=== PATIENT | female | born 1955 | race Caucasian/White ===

== ENCOUNTER → 2016-10-06 | Outpatient (CLI) | payer OTHER ==
[~2016-10-06] MED LIST: CHOL100010 PO; EPP3/2 IM; GABA-113 PO; HYDR-5688 PO; MELO7.5T5 PO; MULT-663; OMEG10007 PO; OXYC-57 PO
--- NOTE | 2016-10-06 11:26 | DIAGNOSTIC IMAGING REPORT ---
CHEST 2 VIEWS ROUTINE CLINICAL HISTORY: Cough. COMPARISON STUDY: Chest CT November 26, 2013. FINDINGS: Lung volumes are normal. There is no pneumothorax or pleural effusion. Pulmonary vascularity is normal. Minimal bibasilar opacities are unchanged and favor atelectasis. Cardiomediastinal silhouette is stable. IMPRESSION: 1. No acute cardiopulmonary findings. 2. Minimal bibasilar opacities suggestive of atelectasis. Electronically signed by: Celso Cardona M.D. 10/06/2016 11:24 AM Dictated Date/Time: 10/06/2016 11:23 AM
== END | disposition home or self-care (01) ==
LOC: C.RAD1850 10:54
PROVIDERS: ATTEND Internal Medicine
DX: R05 Cough (principal)

== ENCOUNTER → 2016-10-06 | Outpatient (CLI) | payer OTHER ==
[2016-10-06 12:29] LABS: BASO % 0.3 %; BASO ABS # 0.02 K/uL (0-0.2); COMPLETE YES; EOS % 0.6 %; HEMATOCRIT 45.5 % (37-47); IG% 0.4 %; LYMPH % 16.2 %; LYMPH ABS # 1.29 K/uL (1.2-3.4); MEAN CORPUSCULAR HEMOGLOBIN 32.9 pg (25-34); MEAN CORPUSCULAR HGB CONC 34.9 g/dl (32-36); MEAN PLATELET VOLUME 8.8 fL (7.4-10.4); MONO % 6.5 %; PLATELET COUNT 229 K/uL (130-400); RED BLOOD COUNT 4.84 M/uL (4.2-5.4); WHITE BLOOD COUNT 7.97 K/uL (4.8-10.8)
[2016-10-06 13:23] LABS: ESTIMATED AVERAGE GLUCOSE 100 mg/dl; HA1C FLAG Normal (Normal)
[2016-10-06 17:03] LABS: ALT/SGPT 66 U/L (12-78); AST/SGOT 42 U/L (15-37); BLOOD UREA NITROGEN 16 mg/dl (7-18); BUN/CREATININE RATIO 18.3 (10-20); CALCIUM 9.2 mg/dl (8.5-10.1); CARBON DIOXIDE 24 mmol/L (21-32); CHLORIDE 102 mmol/L (98-107); CREATININE 0.89 mg/dl (0.60-1.20); GLUCOSE 86 mg/dl (70-99); POTASSIUM 4.5 mmol/L (3.5-5.1); SODIUM 138 mmol/L (136-145)
[2016-10-06 17:15] LABS: ALB/GLOB RATIO 0.9 (0.9-2); ALKALINE PHOSPHATASE 142 U/L (45-117); CHOLESTEROL 233 mg/dl (0-200); CHOLESTEROL/HDL RATIO 2.6; HDL CHOLESTEROL 89 mg/dl; LDL CHOLESTEROL CALCULATED 124 mg/dl; THYROID STIMULATING HORMONE 0.602 uIu/ml (0.300-4.500); TRIGLYCERIDES 98 mg/dl (0-150); VERY LOW DENSITY LIPOPROT CALC 20 mg/dl
== END | disposition home or self-care (01) ==
LOC: C.LABBFT 10:08
PROVIDERS: ATTEND Internal Medicine
DX: N93.9 Abnormal uterine and vaginal bleeding, unspecified (principal); E55.9 Vitamin D deficiency, unspecified; Z13.6 Encounter for screening for cardiovascular disorders; R73.01 Impaired fasting glucose

== ENCOUNTER → 2016-10-19 | Outpatient (CLI) | payer OTHER | END | disposition home or self-care (01) | LOC: C.PAPS 11:34 | PROVIDERS: ATTEND Obstetrics & Gynecology | DX: Z12.4 Encounter for screening for malignant neoplasm of cervix (principal) ==

== ENCOUNTER → 2017-02-08 | Outpatient (CLI) | payer OTHER | END | disposition home or self-care (01) | LOC: C.LAB1850 12:39 | PROVIDERS: ATTEND Internal Medicine | DX: E55.9 Vitamin D deficiency, unspecified (principal); R94.5 Abnormal results of liver function studies ==

== ENCOUNTER → 2017-04-07 | Outpatient (CLI) | payer OTHER ==
[~2017-04-07] MED LIST changes: -GABA-113 PO; -HYDR-5688 PO; -MELO7.5T5 PO; -MULT-663; -OMEG10007 PO; +OPTIRAY 320 IV PRN; -OXYC-57 PO
--- NOTE | 2017-04-07 08:05 | DIAGNOSTIC IMAGING REPORT ---
CT NECK ANGIO WITH CONTRAST CLINICAL HISTORY: Carotid artery stenosis COMPARISON STUDY: No previous studies for comparison. TECHNIQUE: CT angiography was performed from the aortic arch to the skull base. MIP imaging was performed. The patient was scanned in a dynamic helical fashion during intravenous administration of 118 cc of Optiray 320. CT DOSE: 524.01 mGy.cm Technique: CT angiogram of the carotid and vertebral arteries was obtained using intravenous contrast and 3-D reconstruction. NASCET criteria was utilized. Findings: Images the lung apices reveal septal thickening and scattered groundglass attenuation. There is a multinodular thyroid gland. The right carotid revealed no evidence of aneurysm and no evidence of dissection. There is no evidence of hemodynamic significant stenosis. The left carotid revealed no evidence of hemodynamic significant stenosis. There is no evidence of aneurysm. There is no evidence of dissection. There is no evidence of hemodynamically significant vertebral stenosis. There is no evidence of vertebral dissection. IMPRESSION: No evidence of hemodynamically significant carotid or vertebral artery stenosis. No evidence of dissection. Electronically signed by: Bharat Cardoso M.D. 04/07/2017 8:03 AM Dictated Date/Time: 04/07/2017 8:00 AM
== END | disposition home or self-care (01) ==
LOC: C.CTS 07:16
PROVIDERS: ATTEND Physician Assistant Medical
DX: I65.29 Occlusion and stenosis of unspecified carotid artery (principal)

== ENCOUNTER → 2017-04-20 | Outpatient (CLI) | payer OTHER ==
[~2017-04-20] MED LIST changes: -OPTIRAY 320 IV PRN
--- NOTE | 2017-04-20 09:09 | DIAGNOSTIC IMAGING REPORT ---
SOFT TISS HEAD/NECK-THYROID CLINICAL HISTORY: 62 years-old Female presenting with nontoxic multinodular goiter. TECHNIQUE: Real-time grayscale and color and spectral Doppler ultrasound imaging of the thyroid and base of the neck was performed. COMPARISON: CT from 04/07/2017. FINDINGS: Right lobe: Normal echogenicity although heterogeneous echotexture. The right lobe of the thyroid measures 4.3 x 1.2 x 2.0 cm. 2 discrete nodules noted: 1) isoechoic somewhat ill-defined nodule posteriorly at the upper pole measuring 0.9 x 1.0 x 0.9 cm. 2) additional isoechoic somewhat ill-defined nodule posteriorly towards the lower pole is ring 1.2 x 1.0 x 1.1 cm. Hyperechogenic focus may represent a coarse calcification. No parenchymal hyperemia. Left lobe: Normal echogenicity although heterogeneous echotexture. The left lobe of the thyroid measures 3.9 x 1.1 x 1.5 cm. No nodules. No parenchymal hyperemia. Isthmus: The isthmus measures 3 mm in thickness. No nodules. IMPRESSION: Two isoechoic nodules in the right lobe of the thyroid have a low suspicion pattern and are less than 1.5 cm. No fine-needle aspiration indicated at this time. Electronically signed by: Bryson Gonsalves M.D. 04/20/2017 9:07 AM Dictated Date/Time: 04/20/2017 9:02 AM
[2017-04-20 10:54] LABS: THYROID STIMULATING HORMONE 1.07 uIu/ml (0.300-4.500)
== END | disposition home or self-care (01) ==
LOC: C.ULTR 08:28
PROVIDERS: ATTEND Physician Assistant Medical
DX: E04.2 Nontoxic multinodular goiter (principal)

== ENCOUNTER → 2017-10-06 | Outpatient (CLI) | payer OTHER ==
--- NOTE | 2017-10-06 12:58 | DIAGNOSTIC IMAGING REPORT ---
ULTRASOUND OF THE THYROID GLAND CLINICAL HISTORY: Thyroid nodule. COMPARISON STUDY: Thyroid ultrasound dated 04/20/2017. TECHNIQUE: Real-time, grayscale, and color flow sonography of the thyroid gland is performed utilizing a high-frequency linear transducer. Images are reviewed in the transverse and longitudinal planes. FINDINGS: Right lobe: The right lobe of the thyroid gland is normal in size and heterogeneous in echotexture, measuring 4.3 x 1.6 x 1.7 cm. A hypoechoic nodule in the upper pole measures 1.2 x 0.8 x 1.0 cm (previously measured 1.0 x 0.9 x 1.1 cm). A hypoechoic nodule in the lower pole measures 1.2 x 0.9 x 0.9 cm (previously measured 1.2 x 1.0 x 0.9 cm). A coarse calcification is incidentally noted in the right lobe. A 1.0 cm hyperechoic focus is seen inferior to the right lower pole. This is of doubtful significance. Left lobe: The left lobe of the thyroid gland is normal in size and heterogeneous in echotexture, measuring 4.2 x 1.7 x 1.1 cm. A slightly hyperechoic nodule in the lower pole measures 0.6 x 0.5 x 0.6 cm (not clearly identified previously). Isthmus: The thyroid isthmus is normal in appearance and measures 0.2 cm in AP diameter. IMPRESSION: 1. The thyroid gland is heterogeneous in echotexture. 2. Scattered low suspicion thyroid nodules as above. These do not meet sonographic criteria for fine-needle aspiration. Electronically signed by: Keith Bhat M.D. 10/06/2017 12:56 PM Dictated Date/Time: 10/06/2017 12:53 PM
== END | disposition home or self-care (01) ==
LOC: C.ULTRBC 12:22
PROVIDERS: ATTEND Physician Assistant Medical
DX: R93.8 Abnormal findings on diagnostic imaging of other specified body structures (principal)

== ENCOUNTER → 2018-05-14 | Outpatient (CLI) | payer OTHER ==
--- NOTE | 2018-05-14 11:02 | DIAGNOSTIC IMAGING REPORT ---
SOFT TISS HEAD/NECK-THYROID CLINICAL HISTORY: 63 years-old Female with E04.2 Multinodular [id number]. COMPARISON: Thyroid ultrasound 10/06/2017 TECHNIQUE: Multiple real time sonographic images of the thyroid were obtained accessing swanson scale appearance and color doppler flow. FINDINGS: MEASUREMENTS: Right lobe: 4.2 x 2.1 x 1.6 cm Left lobe: 3.8 x 1.7 x 1.6 cm Isthmus: 0.4 cm PARENCHYMA: The thyroid parenchymal echotexture is mildly heterogeneous. NODULES: 0.3 cm shadowing calcification of the mid pole right thyroid. There is a hypoechoic solid nodule of the upper right thyroid lobe which is mostly isoechoic measuring 1.1 x 1.1 x 1.2 cm, previously measuring 1.2 x 0.8 x 1.0 cm. Additionally, there is an iso to slightly hypoechoic lesion of the lower pole right thyroid, 1.3 x 1.3 x 1.2 cm, previously measuring 1.2 x 0.9 x 0.9 cm. No new thyroid nodules are identified. There is a 9 mm echogenic nodule of the lower pole left thyroid measuring up to 0.9 cm, previously measuring up to 0.6 cm. This is likely unchanged with difference in size likely related to technique. IMPRESSION: Heterogeneous thyroid parenchyma with scattered low suspicion thyroid nodules as above. No thyroid nodules meet criteria for biopsy at this time. The above report was generated using voice recognition software. It may contain grammatical, syntax or spelling errors. Electronically signed by: George Butterfield M.D. 05/14/2018 11:01 AM Dictated Date/Time: 05/14/2018 10:55 AM
== END | disposition home or self-care (01) ==
LOC: C.ULTR 09:53
PROVIDERS: ATTEND Nurse Practitioner
DX: E04.2 Nontoxic multinodular goiter (principal)

== ENCOUNTER 2022-09-12 05:32 | Observation (INO) ==
--- NOTE | 2022-09-08 08:14 | Anesthesiology Consultation ---
Date of Service September 08, 2022 Assessment & Plan (1) Encounter for pre-operative examination: Chart Review Chart Review: Acceptable Risk for Surgery and Patient NOT seen in Pre Admission Testing -Per medication list- pt prescribed Emend to take prior to coming into hospital -COVID screening: Per PAT nursing assessment on 09/07/22. No known COVID-19 positive contacts or current COVID-19 related symptoms. Travel screen negative. Patient vaccinated for Covid. At surgeon discretion if preop Covid testing being done. History Surgery Operation Date: 09/12/22 07:30 Proposed Procedures p Bilateral Mastopexy - Jagruti Mcgregor MD s Abdominoplasty with Suction Assisted Lipectomy of the Upper Abdomen - Jagruti Mcgregor MD Height/Weight Height: 5 ft 2.5 in Weight: 69.4 kg Allergies Allergy/AdvReac Type Severity Reaction Status Date / Time bee venom protein (honey bee) Allergy Severe SHORTNESS Verified 09/07/22 16:08 OF BREATH,HIVES No Known Drug Allergies AdvReac Unknown Verified 09/07/22 16:08 Medications Home Medications Medication Instructions Recorded Confirmed Last Taken cholecalciferol (vitamin D3) 125 125 mcg PO QAM 02/03/20 09/07/22 05/11/20 08:00 mcg (5,000 unit) tablet (Vitamin D3) lorazepam 0.5 mg tablet (Ativan) See Rx Instructions PO TID PRN 08/02/21 09/07/22 Unknown anxiety #30 tabs epinephrine 0.3 mg/0.3 mL 0.3 mg (0.3 mL) IM .INJECT 0.3ML 09/30/21 09/07/22 Unknown injection, auto-injector INTRAMU PRN hypersensitivity reaction #1 ea omeprazole 40 mg capsule,delayed See Rx Instructions .Route 12/30/21 09/07/22 Unknown release .COMPLEX #90 caps atorvastatin 10 mg tablet 10 mg PO QAM #90 tabs 04/04/22 09/07/22 Unknown oxycodone-acetaminophen 5 mg-325 1 tab PO Q8H PRN pain #30 tabs 04/05/22 09/07/22 Unknown mg tablet cyclobenzaprine 5 mg tablet 5 mg PO TID PRN muscle spasm #20 09/01/22 09/07/22 Unknown tabs aprepitant 80 mg capsule (Emend) 40 mg PO DAILY 1 day #1 cap 09/05/22 09/07/22 Unknown Past Medical History Medical History (Updated 09/08/22 @ 08:25 by Keira Negrete PA-C) Disc degeneration, lumbar Fatty liver Fibroadenoma of breast GERD (gastroesophageal reflux disease) Heart murmur Only trace to mild AR and MR on 2017 ECHO Hyperlipidemia Multinodular thyroid PCP has done serial ultrasounds- stable Osteopenia Past Family History Family History Father Colorectal cancer Grandmother (Paternal) Family history of diabetes mellitus Other No family history of adverse response to anesthesia Denies family history of Ovarian cancer Prostate cancer Myocardial infarction Breast cancer Past Surgical History Surgical History H/O breast biopsy History of bilateral tubal ligation History of section X 2 History of cholecystectomy History of colonoscopy History of tonsillectomy Social History Smoking Status: Former smoker tobacco type: cigarettes Do You Dip or Chew Tobacco: No Smoking End Date: 1987 Hx Alcohol Use: Yes Alcohol type: wine and hard liquor alcohol intake frequency: a few times a month Hx Substance Use: No substance use type: does not use Lab Results Anesthesia Preop Results Results Anesthesia Widget: WBC 5.98 K/ul (4.8-10.8) 09/02/22 Hgb 16.0 g/dl (12.0-16.0) 09/02/22 Hct 46.2 % (34.1-44.9) H 09/02/22 Plt 237 K/uL (130-400) 09/02/22 Na 138 mmol/L (136-145) 09/02/22 K 4.2 mmol/L (3.5-5.1) 09/02/22 Cl 103 mmol/L (98-107) 09/02/22 CO2 28 mmol/L (21-32) 09/02/22 BUN 20 mg/dl (6-23) 09/02/22 Creat 0.83 mg/dl (0.6-1.2) 09/02/22 Glucose Level 85 mg/dl (70-99(Fasting)) 09/02/22 PT 11.4 Seconds (9.0-12.0) 09/02/22 PTT 26.4 Seconds (21.0-31.0) 09/02/22 INR 1.1 (0.9-1.1) 09/02/22 Testing Electrocardiogram Date: 09/02/22 Findings: + NSR @ (68bpm ) Septal infarct (cited on or before April 23, 2020) When compared to EKG from April 23, 2020- no significant change was found Echocardiogram Date: 03/15/17 EF: 60-65% LV Function: normal RWMA: + none Valvular Disease: + no significant valvular disease Trace to mild AR and MR Other Testing Thyroid ultrasound 04/01/20= No significant change in several low suspicion thyroid nodules since ultrasound of May 14, 2018. These do not meet criteria for biopsy. Neck CTA 04/10/17= No evidence of hemodynamically significant carotid or vertebral artery stenosis. No evidence of dissection
[2022-09-12] MEDS ORDERED: ceFAZolin 2000MG 2,000 MG/15 ML SYR IV SCH (06:00)
[2022-09-12] MEDS ORDERED: LR 15ML/HR IV SCH (06:00)
[2022-09-12] MEDS ORDERED: DEXAMETHASONE SOD INJ 4 MG/ML VIAL ONE (06:38)
[2022-09-12] MEDS ORDERED: fentaNYL citrate 100 MCG/2 ML VIAL ONE ×2 (06:38→11:45)
[2022-09-12] MEDS ORDERED: PROPOFOL IV EMULSION 10 MG/ML 20 ML VIAL IV ONE (06:38)
[2022-09-12] MEDS ORDERED: MIDAZOLAM HCL 1 MG/ML 2ML VIAL ONE (06:38)
[2022-09-12] MEDS ORDERED: GLYCOPYRROLATE 0.2 MG/ML VIAL ONE ×2 (06:38→11:38)
[2022-09-12] MEDS ORDERED: NEOSTIGMINE METHYLSULFATE 1 MG/ML 10ML VIAL ONE (06:38)
[2022-09-12] MEDS ORDERED: ONDANSETRON INJ 2 MG/ML 2 ML VIAL ONE ×2 (06:38→11:38)
[2022-09-12] MEDS ORDERED: HYDROmorphone INJ 2 MG/ML SYR/VIAL ONE (06:48)
[2022-09-12] MEDS ORDERED: ACETAMINOPHEN 1000 MG/100 ML IV IV ONE (06:49)
--- NOTE | 2022-09-12 06:54 | History & Physical Bridge Note ---
Date of Service September 12, 2022 History & Physical Bridge Note I have examined the patient, reviewed the History & Physical and in the interval since the performance of the History & Physical I have noted the following changes of clinical significance: no changes noted
[2022-09-12] MEDS ORDERED: EPINEPHrine INJ 1 MG/ML AMP ONE (07:22)
[2022-09-12] MEDS ORDERED: LIDOCAINE 1% LOCAL 20 ML VIAL ONE (07:23)
[2022-09-12] MEDS ORDERED: LIDOCAINE 1%/EPINEPHRINE 1:100,000 50 ML VIAL ONE (07:23)
[2022-09-12] MEDS ORDERED: BUPIVACAINE 0.25% 30 ML VIAL ONE (07:23)
[2022-09-12] MEDS ORDERED: FLUMAZENIL 0.1 MG/1 ML 10 ML VIAL IV PRN (07:43)
[2022-09-12] MEDS ORDERED: NALOXONE HCL 0.4 MG/1 ML VIAL/CARP IV PRN (07:43)
[2022-09-12] MEDS ORDERED: ePHEDrine sulfate 50 MG/ML AMP IV PRN (07:43)
[2022-09-12] MEDS ORDERED: ONDANSETRON INJ 2 MG/ML 2 ML VIAL IV PRN ×2 (07:43→17:21)
[2022-09-12] MEDS ORDERED: PROMETHAZINE HCL 12.5 MG in SODIUM CHLORIDE 0.9% 50 ML IV PRN ×2 (07:43→17:21)
[2022-09-12] MEDS ORDERED: LABETALOL HCL IV 5 MG/ML 20ML IV PRN (07:43)
[2022-09-12] MEDS ORDERED: ATROPINE SULFATE 0.1 MG/ML 10ML SYR IV PRN (07:43)
[2022-09-12] MEDS ORDERED: ROCURONIUM BROMIDE 10 MG/ML 5 ML VIAL IV ONE ×3 (08:13→10:19)
[2022-09-12] MEDS ORDERED: LIDOCAINE 2% MPF LOCAL 5 ML VIAL INFIL ONE (08:13)
[2022-09-12] MEDS ORDERED: TISSEEL FIBRIN SEALANT 4ML TOP ONE (12:12)
--- NOTE | 2022-09-12 12:55 | Post Operative Brief Note ---
PG Immediate Post Op with CF Date of Surgery September 12, 2022 Pre & Post Diagnosis Operation Date: 09/12/22 07:30 Pre-Op Diagnosis: Encounter For Cosmetic Surgery Post-Op Diagnosis: Encounter For Cosmetic Surgery I identified the patient and participated in the time-out.: Yes Procedure Operation Date: 09/12/22 07:30 Actual Procedures p Bilateral Mastopexy(Bilateral) - Jagruti Mcgregor MD s Abdominoplasty with Suction Assisted Lipectomy of the Upper Abdomen - Jagruti Mcgregor MD Surgeon Jagruti Mcgregor MD Data Entry Processor Rosy Aguilar PA-C Estimated Blood Loss 50 Findings Consistent with Post-Op Diagnosis Specimens Specimen Description: No specimen as per surgeon Drains Tommy Drain (15Fr X 2) and Bedoya Catheter
--- NOTE | 2022-09-12 13:55 | Operative Report ---
PG Post Operative Report Pre & Post Diagnosis Operation Date: 09/12/22 07:30 Pre-Op Diagnosis: Encounter For Cosmetic Surgery Post-Op Diagnosis: Encounter For Cosmetic Surgery I identified the patient and participated in the time-out.: Yes Procedure Operation Date: 09/12/22 07:30 Actual Procedures p Bilateral Mastopexy(Bilateral) - Jagruti Mcgregor MD s Abdominoplasty with Suction Assisted Lipectomy of the Upper Abdomen - Jagruti Mcgregor MD Surgeon Jagruti Mcgregor MD Varnisher Plasticoater Rosy Aguilar PA-C Estimated Blood Loss 50 Findings Consistent with Post-Op Diagnosis Specimens none Drains NICOL x2 Anesthesia Type General Complications none Indications desiring cosmetic improvement in breasts and abdomen Description of Procedure Risks, benefits, and alternatives of the procedure were explained to the patient agreed and signed consent. Patient was marked in the preoperative holding area, brought to the operating room, and positioned supine. She was placed under general anesthesia without incident. Bedoya catheter was placed. Surgical site was prepped and draped sterilely. I planned to begin with mastopexy, followed by suction assisted lipectomy of the upper abdomen, and finally with abdominoplasty as the last portion of the procedure. I began with the left breast. 1% lidocaine with epinephrine was used to anesthetize the planned incisions. A 38 millimeter cookie cutter was used to circumscribe the left nipple areolar complex. 15 blade scalpel then made the mastopexy incisions. The skin between the incisions was de-epithelialized using a 15 blade scalpel. I then used electrocautery to make an incision through dermis and underlying subcutaneous fat along the upper medial and lateral portions of the deepithelialized area as well as at the superior margin of the keyhole incision. I raised a mastopexy flap medially, by incising the dermis and raising medial flap with about 1 cm of underlying soft tissue. 3-0 PDS suture was then used to reapproximate the T-junction, and wound closure was begun using 3-0 PDS interrupted dermal sutures to reapproximate the wounds, 3-0 PDS interrupted superficial dermal sutures were placed around the nipple areolar complex. Once inset of the nipple areolar complex was complete and the wound was closed in the dermal layer, 3-0 Monocryl running subcuticular suture was placed around the nipple areolar complex, vertical limb, and inframammary fold. An identical procedure was undertaken on the right side. Dermabond Prineo was applied to the vertical limb and inframammary fold incisions, Dermabond was placed around the nipple areolar complex. Attention was then turned to suction assisted lipectomy of the upper abdomen. Preoperatively, I marked the epigastric region as well as some prominent fat noted inferior to the inframammary folds bilaterally as well as in the periumbilical area. Several small access incisions were marked in the lower abdomen and at the 12 o'clock position of the umbilicus. They were injected with 1% lidocaine with epinephrine, incised using a 15 blade scalpel. Tumescent solution was utilized to infiltrate the planned areas of liposuction. A total of 600 cc were instilled. 3 mm suction cannula was used to pretunnel in all areas of planned liposuction, and then connected to suction. Cannula was passed in all areas from multiple different locations in order to prevent contour deformity. I did concentrate on the central upper abdomen/ Endpoints of liposuction were uniform pinch, and reduction of fat in the areas of concern. A total of 600 cc of Lipo aspirate were obtained. Excess fluid was milked out through the access incisions. Attention was then turned to abdominoplasty. I reassessed my markings which included a lower horizontal abdominal incision with the midportion 7 cm above the vulvar commissure. Incision was marked bilaterally to the ASIS. I began by injecting 1% lidocaine with epinephrine along the planned incision. The lower abdominal incision was made using a 15-blade scalpel to incise epidermis and superficial dermis followed by electrocautery to incise deep dermis, subcutaneous fat, Chas's fascia down to the abdominal wall. Electrocautery was used to elevate the anterior abdominal skin flap ligating the perforating vessels with 3-0 Vicryl ties and electrocautery. Dissection was carried up to the level of the umbilicus in the midline. At this point, a 15-blade scalpel was used to circumscribe the umbilicus. A vertical midline incision was then made from the incision to the umbilicus and divided in the midline using elect rocautery. The umbilicus was then dissected out using electrocautery down to abdominal wall. The umbilical stalk appeared viable throughout the procedure.I then narrowed my dissection and continued superiorly in the midline to the xyphoid process. Rectus plication was then performed using 0-Prolene figure of eight interrupted sutures from the xiphoid to the umbilicus and from the umbilicus to the pubic symphysis. A running 0-Prolene suture was then placed to reinforce the plication. At this point, the bed was flexed and the mid portion of the superior skin flap was inset above the mons pubis using 2-0 Vicryl suture. Skin flaps were marked for excision. A 15-blade scalpel was used to make these incisions and the incision was deepened through dermis, subcutaneous fat, Chas's fat using electrocautery. Subscarpal fat was resected directly. A 15 Beninese Tommy drains were placed in the wound bed and brought out through a separate stab incision in the mons pubis. The drains were sutured into place using 3-0 nylon. Prior to closure, 0.25% Marcaine plain were injected into the fascia as well as along the incisions and Tisseel was sprayed into the wound bed. The umbilicus was brought out through an inverted triangular incision in the abdominal wall. This was performed using a 15-blade scalpel. Wound closure was then begun lateral to medial using 2-0 Vicryl Chas's fascia sutures, 2-0 Vicryl deep dermal sutures, 2-0 PDO running superficial Quill suture, 3-0 Monocryl running subcuticular suture. Umbilicus was brought out through the inverted triangle incision and was sutured into place using 4-0 chromic half buried horizontal mattress sutures. The umbilicus was dressed using Xeroform and the incision was dressed using Dermabond Prineo and an abdominal binder. The procedure was tolerated well. At the close of the case, umbilicus and bilateral nipple areolar complexes were pink and viable. Estimated blood loss 50 cc including Lipo aspirate. The patient was awakened and transferred to recovery in satisfactory condition. I attest to the content of the Intraoperative Record and any orders documented therein. Any exceptions are noted below.
[2022-09-12] MEDS: fentaNYL citrate 100 MCG/2 ML VIAL IV PRN ×4 (13:56→14:11)
--- NOTE | 2022-09-12 14:40 | Anesthesiology Progress Note ---
Date of Service September 12, 2022 Anesthesia Post Procedure Vital Signs Vital Signs: Temp Pulse Pulse Resp BP Pulse Ox O2 Del Method 09/12/22 14:10 78 17 124/78 94 Nasal Cannula 09/12/22 14:00 84 16 119/74 94 Nasal Cannula 09/12/22 13:50 90 11 L 138/87 88 L Room Air 09/12/22 13:40 96 H 12 144/85 H 94 Oxymask 09/12/22 13:30 105 H 16 136/82 97 Oxymask 09/12/22 13:20 36.2 C L 121 H 10 L 136/90 96 Oxymask 09/12/22 06:10 36.6 C 69 18 149/86 H 95 Room Air O2 Flow Rate 09/12/22 14:10 2 09/12/22 14:00 2 09/12/22 13:50 09/12/22 13:40 2 09/12/22 13:30 6 09/12/22 13:20 10 09/12/22 06:10 Pain Intensity Lower Abdomen: Pain Intensity: 5 Transfer of Care Handoff Completed per policy Notes Mental Status: alert / awake / arousable Patient Amnestic to Procedure: Yes Nausea / Vomiting: adequately controlled Pain: adequately controlled Airway Patency, RR, SpO2: stable & adequate BP & HR: stable & adequate Hydration State: stable & adequate Anesthetic Complications: no major complications apparent
[2022-09-12] MEDS: HYDROmorphone INJ 1 MG/ML SYRINGE IV PRN ×4 (15:34→16:53)
[2022-09-12] MEDS ORDERED: MoRPHine SULFATE 4 MG/ML 1 ML CARP\\VIAL IV PRN (17:21)
[2022-09-12] MEDS ORDERED: diphenhydrAMINE Capsule 25 MG CAP PO PRN (17:21)
[2022-09-12] MEDS ORDERED: ACETAMINOPHEN 325 MG TAB PO PRN (17:21)
[2022-09-12] MEDS ORDERED: diphenhydrAMINE 50 MG/ML VIAL IV PRN (17:21)
[2022-09-12] MEDS ORDERED: LORazepam 0.5 MG TAB PO PRN (17:21)
[2022-09-12] MEDS: oxyCODONE/ACETAMINOPHEN 5mg/325mg TAB PO PRN ×2 (17:37→22:34)
[2022-09-12] MEDS: D5W AND 1/2NSS 1,000 ML IV SCH (17:41)
[2022-09-12] MEDS: ceFAZolin 2000MG 2,000 MG/15 ML SYR IV SCH (18:25)
[2022-09-12] MEDS: MoRPHine SULFATE 2 MG/ML CARP IV PRN ×2 (19:24→23:37)
[2022-09-13] MEDS: ceFAZolin 2000MG 2,000 MG/15 ML SYR IV SCH (02:01)
[2022-09-13] MEDS: oxyCODONE/ACETAMINOPHEN 5mg/325mg TAB PO PRN ×3 (02:41→11:24)
[2022-09-13] MEDS: D5W AND 1/2NSS 1,000 ML IV SCH (06:38)
[2022-09-13] MEDS ORDERED: MULTIVITAMIN TAB PO SCH (09:00)
[2022-09-13] MEDS ORDERED: ATORVASTATIN 10 MG TAB PO SCH (09:00)
--- NOTE | 2022-09-13 10:27 | Surgery Progress Note ---
Date of Service September 13, 2022 Assessment & Plan (1) S/P abdominoplasty: Plan: Patient is s/pBilateral Mastopexy, Abdominoplasty with Suction Assisted Lipectomy of the Upper Abdomen She is feeling well. Pain controlled. She has been out of bed without issue and has voided without issue. She is ok for discharge to home. Measuring and recording drain output reviewed with patient. Discharge instructions reviewed and all questions answered. She will keep surgical bra, binder and all dressings in place until appointment tomorrow. Return precautions reviewed. Admission and Anticipated Discharge Date Admission Date: September 12, 2022 Ken Ma is resting comfortably in bed, watching Netflix. She reports that she is feeling well. She has been out of bed several times this morning without issue She has voided on her own without issue. She denies post-op nausea. Her pain is well-controlled. She reports that her daughter took today off so that she can pick her up and take her home. Patient's daughter will be caring for her at home. Review of Systems Cardiovascular: no chest pain, no chest pain at rest and no chest pain with activity Gastrointestinal: no abdominal pain, no nausea and no vomiting Physical Exam Constitutional: WD/WN, vitals as above Chest (Breasts): Additional Comments: Surgical bra in place since surgery. Bilateral NACs are pink, viable and with sensation. No signs of bleeding on exam. Surgical dressings reinforced. Gastrointestinal (Abdomen): Surgical binder in place- removed and peeled back- no signs of active bleeding on exam. Bilateral drains in place with bloody drainage. No signs of clots in drain bulbs. Dressings reinforced and binder reattached. Results & Data ([facility]) Vital Signs (Past 12 Hours) Vital Signs Temp Pulse Resp BP Pulse Ox O2 Del Method 09/13/22 07:32 36.8 C 79 18 98/62 L 95 Room Air 09/13/22 03:00 36.5 C 71 14 121/76 94 Room Air 09/12/22 22:43 36.5 C 81 16 129/80 94 Room Air PG Care Time/CCT Total # of Minutes Spent Total Time Spent with Patient: Total time spent is greater than 50% in coordination of care (as documented) at patient's floor/unit and/or counseling patient: Coding Level of Care Code None Diagnoses S/P abdominoplasty Z98.890
--- NOTE | 2022-09-13 12:28 | Discharge Summary ---
Date of Service September 13, 2022 Admission HPI Per Admitting Provider Please see admission History and Physical. Admission Exam Per Admitting Provider Please see admission History and Physical. Principal Diagnosis Encounter for Cosmetic Surgery. Discharge Exam Surgical bra in place since surgery. Bilateral NACs are pink, viable and with sensation. No signs of bleeding on exam. Surgical dressings reinforced. Surgical binder in place- removed and peeled back- no signs of active bleeding on exam. Bilateral drains in place with bloody drainage. No signs of clots in drain bulbs. Dressings reinforced and binder reattached. Constitutional WD/WN, vitals as above Respiratory normal respiratory effort; no respiratory distress and no labored breathing Discharge Data Allergies Allergy/AdvReac Type Severity Reaction Status Date / Time bee venom protein (honey bee) Allergy Severe SHORTNESS Verified 09/12/22 06:05 OF BREATH,HIVES No Known Drug Allergies AdvReac Unknown Verified 09/12/22 06:05 Procedures Performed Operation Date: 09/12/22 07:30 Actual Procedures p Bilateral Mastopexy(Bilateral) - Jagruti Mcgregor MD s Abdominoplasty with Suction Assisted Lipectomy of the Upper Abdomen - Jagruti Mcgregor MD Ordered Studies 09/12/22 05:00 US - OR guided needle placemen Routine Hospital Course (1) S/P abdominoplasty: Francesca is a 67-year-old female who presented for cosmetic surgery. She was taken to the OR and underwent Bilateral Mastopexy and Abdominoplasty with Liposuction of the upper abdomen. There were no intraoperative complications. She was taken to the recovery area and then transferred to med/surg for observation. On POD#1 she was feeling very good. She was tolerating a regular diet, voiding on her own and ambulating without issue. On exam, her vital signs were stable. Surgical bra in place since surgery. Bilateral NACs are pink, viable and with sensation. No signs of bleeding on exam. Surgical dressings reinforced. Surgical binder in place- removed and peeled back- no signs of active bleeding on exam. Bilateral drains in place with bloody drainage. No signs of clots in drain bulbs. Dressings reinforced and binder reattached. Return precautions reviewed. She was discharged to home with follow-up appointment scheduled for tomorrow. All questions answered. Total Time Total Time Spent Total Time Spent (In Minutes): 10 Discharge Plan Discharge Items Patient Disposition: Home - Self-Care Reason For Visit: Encounter For Cosmetic Surgery Discharge Diagnosis: Encounter for Cosmetic Surgery Activity: As commented below Non-emergency contact: Surgeon Call non-emergency contact if: you have any medication questions, your pain is not controlled, your temperature is above 101.5, your wound has increased redness and your wound has increased drainage Follow-up/Referrals: Jagruti Mcgregor MD [Physician] - 09/14/22 4:00 pm Mary Grace Thompson MD [Primary Care Provider] - Diet: Regular Addtl Attending Provider Instructions: ACTIVITY RECOMMENDATIONS: __Normal activities X__No bending, lifting or straining __No driving _X_Driving allowed when you are off pain medications _X_Walking permitted __You should have help at home for ___ days DRESSINGS: __No dressings required _X_Keep dressings dry/in place until first office visit __Remove dressings ___ and leave dressings off __Apply ice ___ days __Remove dressings and reapply garment __Apply antibiotic ointment (Bacitracin, Neosporin, etc) to wounds 3-4 times/day for 10 days BATHING: X__Keep dressings dry _X_Sponge bathing permitted __Showering permitted _X_No swimming, hot tubs or soaking in a tub MEDICATIONS: Resume previous medications unless instructed otherwise by your surgeon. _X_Do not use aspirin, Motrin, Advil or Ibuprofen as these may promote bleeding. Please use Tylenol. _X_Prescription(s) provided: Prescription for pain medication and muscle relaxant provided at your last office visit, please use as prescribed. OTHER INSTRUCTIONS: _X_Record drain output 2-3 times per day SPECIAL CARE INSTRUCTIONS: * It is normal to have a mild fever after surgery. If your temperature is higher than 101.5 degrees F, please call the office at [phone]. * Constipation is a typical side effect of pain medication. An ctil-rld-vqzomdn stool softener will help relieve this. * Leaking around surgical drains may occur and should not cause concern. Sometimes these drains become clogged. If this happens, remove the bulb and milk the clot out of the tube, then replace the bulb. * Drainage from wounds after liposuction is normal and should be expected. Garments will become soiled. You should protect furniture and bedding. This drainage should mostly subside within 2-3 days. Leave garments in place unless instructed to remove them. * If you have unusual drainage from a wound or are concerned you have an infection or have any questions or concerns, please call the office at [phone]. FOLLOW UP VISIT: If not already scheduled, please call the office, , when you return home after surgery to schedule an appointment to be seen in _1__ days. Pending Studies at Discharge: No Stand-Alone Forms: [facility], Smoking Cessation Medications and DC Order Prescriptions: Continued lorazepam [Ativan] 0.5 mg tablet See Rx Instructions PO TID PRN (Reason: anxiety) Qty: 30 0RF Rx Instructions: 1-2 tabs PO three times a day PRN; epinephrine 0.3 mg/0.3 mL auto-injector 0.3 mg IM .INJECT 0.3ML INTRAMU PRN (Reason: hypersensitivity reaction) Qty: 1 1RF omeprazole 40 mg capsule,delayed release(DR/EC) See Rx Instructions .ROUTE .COMPLEX Qty: 90 3RF Dose Instruction: TAKE 1 CAPSULE BY MOUTH EVERY MORNING. Rx Instructions: TAKE 1 CAPSULE BY MOUTH EVERY MORNING. oxycodone-acetaminophen 5-325 mg tablet 1 tab PO Q8H PRN (Reason: pain) Qty: 30 0RF cyclobenzaprine 5 mg tablet 5 mg PO TID PRN (Reason: muscle spasm) Qty: 20 0RF Rx Instructions: initial therapy Dr. Mcgregor [id number] aprepitant [Emend] 80 mg capsule 40 mg PO DAILY 1 Days Qty: 1 0RF Rx Instructions: take tablet immediately prior to walking into surgery center with a small sip of water cholecalciferol (vitamin D3) [Vitamin D3] 125 mcg (5,000 unit) Tablet 125 mcg PO QAM atorvastatin [Lipitor] 10 mg tablet 10 mg PO QAM Discharge Orders: Discharge Order (Routine); Ordered 09/13/22 Ordered By: Lis Bhatt Admission Data Admit Date/Time: 09/12/22 13:42 Attending Provider: Jagruti Mcgregor Admit Provider: Mcgregor,Jagruti A. Primary Care Provider: Mary Grace Thompson Other Interventions: Discharge Summary Assessment (RN) Last Done: 09/13/22 10:46 Supervising Physician Co-Signing Physician Notes Dr. Jagruti Mcgregor Coding Level of Care Code 02824 OBS Care - Discharge Diagnoses S/P abdominoplasty Z98.890
== END 2022-09-13 11:42 | disposition home or self-care (01) ==
LOC: PACUINP 05:32 → ASU 05:32 → 3N 17:22